=== PATIENT | female | born 1995 | race African-American/Black ===

== ENCOUNTER 2020-02-18 19:46 | Emergency (ER) | payer OTHER ==
[~2020-02-18] VITALS: Ht 152.4 cm; Wt 61.2 kg
[~2020-02-18 19:46] MED LIST: ALEVE220 MG PO; AUGMENTIN 875875 MG PO
[2020-02-18] MEDS ORDERED: PREDNISONE 20 M20 MG PO (21:33)
[2020-02-18] MEDS ORDERED: EPIPEN 2-P0.3 MG/0.3 IM (21:33)
[2020-02-18 21:49] VITALS: BP 124/83
== END 2020-02-18 21:58 | disposition home or self-care (01) ==
LOC: ER 19:46
DX: T78.1XXA Other adverse food reactions, not elsewhere classified, initial encounter (principal); R11.10 Vomiting, unspecified; Z88.5 Allergy status to narcotic agent; Z88.8 Allergy status to other drugs, medicaments and biological substances; Y92.89 Other specified places as the place of occurrence of the external cause